=== PATIENT | male | born 1935 | race Caucasian/White ===

== ENCOUNTER 2016-04-30 13:24 | Emergency (ER) | payer MEDICARE ==
--- NOTE | 2016-04-30 16:03 | Emergency Department Record ---
History of Present Illness - General Chief Complaint: Fall Injury Stated Complaint: FELL 04/28/16 Time Seen by Provider: 04/30/16 15:07 Source: Patient Mode of Arrival: Ambulatory Limitations: No limitations - History of Present Illness Initial Comments: pt fell 2 days ago after tripping on something on the floor and has continued to have pain in his l thumb and shoulder that is keeping him awake at night. 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 Witnessed: No Place Fall Occurred: Home Loss of Consciousness: None Prolonged Down Time?: No Symptoms Prior to Fall: None Location - Extremities: Left: Shoulder, Hand Severity: Moderate Quality: Aching Associated Symptoms: Denies - Mariia Coma Scale Eye Response: (4) Open spontaneously Motor Response: (6) Obeys commands Verbal Response: (5) Oriented Mariia Total: 15 - Related Data Home Medications Medication Instructions Recorded Confirmed Last Taken Aspirin Chewable 81 mg PO DAILY 07/19/15 04/30/16 1 Day Ago Fluoxetine HCl [Prozac] 20 mg PO DAILY 07/19/15 04/30/16 1 Day Ago Hydrochlorothiazide [Hctz 25Mg] 25 mg PO DAILY 07/19/15 04/30/16 1 Day Ago Lisinopril [Zestril] 20 mg PO DAILY 07/19/15 04/30/16 1 Day Ago Metformin HCl 850 mg PO BID 07/19/15 04/30/16 1 Day Ago Freedom-3 Fatty Acids/Fish Oil [Fish 1 tab PO DAILY 07/19/15 04/30/16 1 Day Ago Oil 1,000 mg Softgel] Oxybutynin Chloride [Ditropan Xl] 10 mg PO DAILY 07/19/15 04/30/16 1 Day Ago Simvastatin [Simvastatin] 40 mg PO DAILY 07/19/15 04/30/16 1 Day Ago FA/Vit B Complex & C/Rice Bran 1 each PO DAILY 04/30/16 04/30/16 1 Day Ago [Vitamin B-Complex & C Caplet] Metoprolol Succinate [Toprol Xl] 50 mg PO QPM 04/30/16 04/30/16 1 Day Ago Tamsulosin HCl [Flomax] 0.4 mg PO DAILY 04/30/16 04/30/16 1 Day Ago Previous Rx's Medication Instructions Recorded Hydrocodone/Acetaminophen [Holt 0.5 - 1 tab PO TID PRN #7 tab 04/30/16 5mg/325mg] Allergies Allergy/AdvReac Type Severity Reaction Status Date / Time Penicillins Allergy Unknown ANAPHYLAXIS Verified 04/30/16 14:39 Sulfa (Sulfonamide Allergy Unknown ITCHING Verified 04/30/16 14:39 Antibiotics) sulfacetamide Allergy Unknown ITCHING Verified 04/30/16 14:39 codeine AdvReac HEADACHE Verified 04/30/16 14:39 Travel Screening - Travel/Exposure Within Last 30 Days Have you traveled within the last 30 days?: No - Travel/Exposure Within Last Year Have you traveled outside the [place] in the last year?: No - Additonal Travel Details Have you been exposed to anyone with a communicable illness?: No - Travel Symptoms Symptom Screening: None Review of Systems Reviewed: No additional complaints except as noted below Constitutional: Reports: As per HPI. Denies: Chills, Fever, Malaise, Night sweats, Weakness, Weight change Eyes: Reports: As per HPI. Denies: Eye discharge, Eye pain, Photophobia, Vision change ENT: Reports: As per HPI. Denies: Congestion, Dental pain, Ear pain, Epistaxis , Hearing loss, Throat pain Respiratory: Reports: As per HPI. Denies: Cough, Dyspnea, Hemoptysis, Stridor, Wheezes Cardiovascular: Reports: As per HPI. Denies: Arrhythmia, Chest pain, Dyspnea on exertion, Edema, Murmurs, Orthopnea, Palpitations, Paroxysmal nocturnal dyspnea, Rheumatic Fever, Syncope Endocrine: Reports: As per HPI. Denies: Fatigue, Heat or cold intolerance, Polydipsia, Polyuria Gastrointestinal: Reports: As per HPI. Denies: Abdominal pain, Constipation, Diarrhea, Hematemesis, Hematochezia, Melena, Nausea, Vomiting Genitourinary: Reports: As per HPI. Denies: Dysuria, Frequency, Hematuria, Incontinence, Retention, Testicular pain, Testicular mass, Urgency Musculoskeletal: Reports: As per HPI. Denies: Arthralgia, Back pain, Gout, Joint swelling, Myalgia, Neck pain Skin: Reports: As per HPI. Denies: Bruising, Change in color, Change in hair/ nails, Lesions, Pruritus, Rash Neurological: Reports: As per HPI. Denies: Abnormal gait, Confusion, Headache, Numbness, Paresthesias, Seizure, Tingling, Tremors, Vertigo, Weakness Psychiatric: Reports: As per HPI. Denies: Anxiety, Auditory hallucinations, Depression, Homicidal thoughts, Suicidal thoughts, Visual hallucinations Hematological/Lymphatic: Reports: As per HPI. Denies: Anemia, Blood Clots, Easy bleeding, Easy bruising, Swollen glands Past Medical History - SOCIAL HISTORY Smoking Status: Former smoker Alcohol Use: None Drug Use: None - RESPIRATORY Hx Respiratory Disorders: Yes Hx of CPAP: Yes - CARDIOVASCULAR Hx Cardio Disorders: Yes Hx Hypertension: Yes - NEURO Hx Neuro Disorders: Yes Hx Dementia: Yes - GI Hx GI Disorders: No - Hx Genitourinary Disorders: Yes Hx Prostate Problems: Yes - ENDOCRINE Hx Endocrine Disorders: Yes Hx Diabetes: Yes - MUSCULOSKELETAL Hx Musculoskeletal Disorders: No - PSYCH Hx Psych Problems: Yes Hx Depression: Yes - HEMATOLOGY/ONCOLOGY Hx Hematology/Oncology Disorders: No Family Medical History Any Significant Family History?: Yes Physical Exam - General General Appearance: Alert, Oriented x3, Cooperative, Mild distress - Head Head exam: Normal inspection - Eye Eye exam: Normal appearance, PERRL, EOMI Pupils: Normal accommodation - ENT ENT exam: Normal exam, Mucous membranes moist, Normal external ear exam, Normal orophraynx, TM's normal bilaterally Ear exam: Normal external inspection. negative: External canal tenderness Nasal Exam: Normal inspection. negative: Discharge, Sinus tenderness Mouth exam: Normal external inspection, Tongue normal Teeth exam: Normal inspection. negative: Dental caries Throat exam: Normal inspection. negative: Tonsillar erythema, Tonsillar exudate - Neck Neck exam: Normal inspection, Full ROM. negative: Tenderness - Respiratory Respiratory exam: Normal lung sounds bilaterally. negative: Respiratory distress - Cardiovascular Cardiovascular Exam: Regular rate, Normal rhythm, Normal heart sounds - GI/Abdominal GI/Abdominal exam: Soft, Normal bowel sounds. negative: Tenderness - Rectal Rectal exam: Deferred - exam: Deferred - Extremities Extremities exam: Joint swelling, Normal capillary refill, Tenderness. negative : Full ROM Image of Full Body: 1 - tender 2 - tender, swelling Image of Hand: 1 - tender, swelling - Back Back exam: Reports: Normal inspection, Full ROM. Denies: Muscle spasm, Rash noted, Tenderness - Neurological Neurological exam: Alert, CN II-XII intact, Normal gait, Oriented X3 - Psychiatric Psychiatric exam: Normal affect, Normal mood - Skin Skin exam: Dry, Intact, Normal color, Warm Course Vital Signs 04/30/16 14:28 Temperature 98.0 F Pulse Rate 82 Respiratory 16 Rate Blood Pressure 151/84 Pulse Ox 99 Disposition Disposition: Discharge Clinical Impression: Left thumb sprain Qualifiers: Encounter type: initial encounter Sprain of finger site: unspecified site Qualified Code(s): S63.602A - Unspecified sprain of left thumb, initial encounter Disposition: Home, Self-Care Condition: (1) Good Instructions: Fall Prevention for Older Adults (ED), Skier's Thumb (ED), Ligament Sprain, Youth Specialist (GEN) Additional Instructions: follow up with family doctor and with ortho doctor. return sooner if worse. motrin with food Prescriptions: Hydrocodone/Acetaminophen [Holt 5mg/325mg] 0.5 - 1 tab PO TID PRN #7 tab PRN Reason: Pain - General Forms: Patient Portal Access
--- NOTE | 2016-05-04 12:49 | RADIOLOGY REPORT ---
EXAM: LEFT HUMERUS, TWO VIEWS HISTORY: PAIN IN THE UPPER ARM SINCE FALL THREE DAYS AGO. TECHNIQUE: Two views of the left humerus are provided without comparison examinations. FINDINGS: There is no radiographic evidence of a fracture or dislocation of the left humerus. No significant soft tissue abnormalities are visualized. Acromioclavicular hypertrophy is noted. The visualized left hemithorax is unremarkable. IMPRESSION: NO RADIOGRAPHIC EVIDENCE OF AN ACUTE PROCESS INVOLVING THE LEFT HUMERUS. JOB NUMBER: [id number] MTDD
--- NOTE | 2016-05-04 12:55 | RADIOLOGY REPORT ---
EXAM: LEFT FIRST DIGIT, THREE VIEWS HISTORY: PAIN STATUS POST FALL. TECHNIQUE: Three views of the left first digit are provided without comparison examinations. FINDINGS: There is no radiographic evidence of a fracture or dislocation of the left first digit. Advanced joint space loss with marginal osteophyte formation and subchondral sclerosis is noted at the first carpal metacarpal, metacarpal phalangeal, and interphalangeal joints. No radiopaque foreign bodies are identified. No significant soft tissue swelling is noted. 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 JOB NUMBER: [id number] MTDD
== END 2016-04-30 16:48 | disposition home or self-care (01) ==
LOC: ER 13:24
DX: S63.602A Unspecified sprain of left thumb, initial encounter (principal); M25.512 Pain in left shoulder; W18.09XA Striking against other object with subsequent fall, initial encounter; Y92.009 Unspecified place in unspecified non-institutional (private) residence as the place of occurrence of the external cause
CPT/HCPCS: 99283

== ENCOUNTER 2017-04-25 19:45 | Emergency (ER) | payer MEDICARE ==
--- NOTE | 2017-04-25 19:56 | Emergency Department Record ---
History of Present Illness - General Chief complaint: Weakness Stated complaint: WEAKNESS Time Seen by Provider: 04/25/17 19:49 Source: Patient, EMS Mode of Arrival: Stretcher Limitations: No limitations - History of Present Illness Initial comments: 82 yo male present by EMS after an episode of weakness and collapsing into a chair. He denies LOC. 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 He states he started to feel very weak and lost control of his bladder and urinated in his pants. He went to the bathroom to clean up and then felt overwhelming weak and collapsed into his 's chair. He did not loose consciousness. He recalls the event. He was weak all over not on one side or the other. No changes in vision or speech. No headache or dizziness. No chest pain. No shortness of breath. No back or abdominal pain. No numbness or tingling. [facility] P[facility] is at [facility] in [place]. MD Complaint: Generalized weakness -: Hour(s) (1) Location: Generalized Severity: Moderate Consistency: Now resolved Improves with: None Worsens with: None Associated Symptoms: Other (urinary incontinence) - Mariia Coma Scale Eye Response: (4) Open spontaneously Motor Response: (6) Obeys commands Verbal Response: (5) Oriented Hendricks Total: 15 - Related Data Home Medications Medication Instructions Recorded Confirmed Last Taken Donepezil HCl 5 mg PO DAILY 04/25/17 04/25/17 04/25/17 Meloxicam [Mobic] 15 mg PO DAILY 04/25/17 04/25/17 Unknown Memantine HCl [Namenda] 10 mg PO BID 04/25/17 04/25/17 Unknown Allergies Allergy/AdvReac Type Severity Reaction Status Date / Time Penicillins Allergy Unknown ANAPHYLAXIS Verified 04/30/16 14:39 Sulfa (Sulfonamide Allergy Unknown ITCHING Verified 04/30/16 14:39 Antibiotics) sulfacetamide Allergy Unknown ITCHING Verified 04/30/16 14:39 codeine AdvReac HEADACHE Verified 04/30/16 14:39 Review of Systems Constitutional: Reports: Weakness. Denies: Chills, Fever, Malaise Eyes: Denies: Eye discharge, Eye pain, Photophobia, Vision change ENT: Denies: Congestion, Throat pain Respiratory: Denies: Cough, Dyspnea, Hemoptysis, Stridor, Wheezes Cardiovascular: Reports: Syncope (near syncope). Denies: Chest pain, Dyspnea on exertion, Edema, Palpitations Endocrine: Reports: Fatigue Gastrointestinal: Denies: Abdominal pain, Constipation, Diarrhea, Hematemesis, Hematochezia, Melena, Nausea, Vomiting Genitourinary: Reports: Incontinence. Denies: Dysuria, Frequency, Hematuria, Retention, Testicular pain, Urgency Musculoskeletal: Denies: Arthralgia, Back pain, Gout, Neck pain Skin: Denies: Bruising, Change in color, Rash Neurological: Reports: Weakness. Denies: Abnormal gait, Confusion, Headache, Numbness, Seizure, Tingling, Tremors, Vertigo Psychiatric: Denies: Anxiety Hematological/Lymphatic: Denies: Blood Clots, Easy bleeding, Easy bruising, Swollen glands Past Medical History - SOCIAL HISTORY Smoking Status: Former smoker Drug Use: None - RESPIRATORY Hx Respiratory Disorders: Yes Hx of CPAP: Yes - CARDIOVASCULAR Hx Cardio Disorders: Yes Hx Hypertension: Yes - NEURO Hx Neuro Disorders: Yes Hx Dementia: Yes - GI Hx GI Disorders: No - Hx Genitourinary Disorders: Yes Hx Prostate Problems: Yes - ENDOCRINE Hx Endocrine Disorders: Yes Hx Diabetes: Yes - MUSCULOSKELETAL Hx Musculoskeletal Disorders: No - PSYCH Hx Psych Problems: Yes Hx Depression: Yes - HEMATOLOGY/ONCOLOGY Hx Hematology/Oncology Disorders: No Physical Exam - General General Appearance: Alert, Oriented x3, Cooperative, No acute distress, Other ( Well appearing, conversational, moved himself over onto the ED bed without assist) Limitations: No limitations - Head Head exam: Atraumatic, Normal inspection - Eye Eye exam: Normal appearance, PERRL, EOMI. negative: Conjunctival injection, Periorbital swelling, Scleral icterus - ENT ENT exam: Normal exam, Mucous membranes moist Ear exam: Normal external inspection Nasal Exam: Normal inspection Mouth exam: Normal external inspection Teeth exam: Normal inspection Throat exam: Normal inspection - Neck Neck exam: Normal inspection, Full ROM. negative: Tenderness - Respiratory Respiratory exam: Normal lung sounds bilaterally. negative: Accessory muscle use, Decreased breath sounds, Respiratory distress, Rhonchi, Stridor, Wheezes - Cardiovascular Cardiovascular Exam: Regular rate, Normal rhythm, Normal heart sounds, Diastolic murmur, Systolic murmur Peripheral Pulses: 2+: Radial (R), Radial (L) - GI/Abdominal GI/Abdominal exam: Soft. negative: Distended, Guarding, Rebound, Rigid, Tenderness - Rectal Rectal exam: Deferred - exam: Deferred - Extremities Extremities exam: Normal inspection, Full ROM, Normal capillary refill. negative: Pedal edema, Tenderness - Back Back exam: Reports: Normal inspection, Full ROM. Denies: Muscle spasm, Rash noted, Tenderness - Neurological Neurological exam: Alert, Normal gait, Oriented X3. negative: CN II-XII intact - Psychiatric Psychiatric exam: Normal affect, Normal mood. negative: Agitated, Anxious - Skin Skin exam: Dry, Intact, Normal color, Warm Course - Reevaluation(s) Reevaluation #1: EKG NSR rate is 66, intervals prolonged TX 220, axis normal, ST NS inferior Q ( old), No acute ST changes. No changes 09/200304/25/17 19:58 04/25/17 21:11 No acute changes on the CBC, CMP, Troponin 04/25/17 21:29 HCT is negative for acute process, 2cm possible RF hemangioma CXR is negative for acute process. Chronic fibrosis 04/25/17 21:39 The is in the ED. She reports no prior history of cardiac murmur. Given his near syncope and murmur recommend further work up. 04/25/17 21:43 UA is consistent with UTI with TNTC WBC and +1 bacteria 04/25/17 21:55 Dr Adams accept the patient for transfer and further work up at [facility] Medical Decision Making - Lab Data Result diagrams: 04/25/17 20:06 04/25/17 20:06 Disposition Disposition: Transfer Clinical Impression: Pre-syncope, Heart murmur, UTI (urinary tract infection) Disposition: Acute Care Hospital Transfer Transfer To: [facility] Reason For Transfer: Near syncope , murmur Accepting Physician: Bryan Time Discussed w/Accepting Physician: 21:56 Condition: (1) Good Forms: Patient Portal Access Time of Disposition: 21:56 Quality - Quality Measures Quality Measures: N/A - Blood Pressure Screening Does Patient Have Any of the Following: Active Dx of HTN Blood Pressure Classification: Hypertensive Reading Systolic Measurement: 193 Diastolic Measurement: 110 Screening for High Blood Pressure: Patient Exclusion, Hx of HTN [G9744]
[2017-04-25 20:11] LABS: BASO % 0.5 % (0-6); EOS % 4.2 % (0-6); GRAN % 72.1 % (47-80); HEMOGLOBIN 12.2 gm/dl (14.0-18.0); LYMPH % 15.4 % (16-45); MEAN CELL VOLUME 94.1 fl (81-97); MEAN CORPUSCULAR HGB CONC 34.9 g/dl (32-36); MEAN PLATELET VOLUME 8.6 fl (7.4-10.4); MONO % 7.8 % (0-9); PLATELET COUNT 140 K/uL (130-400); RED BLOOD COUNT 3.72 M/uL (4.40-5.70); RED CELL DISTRIBUTION WIDTH 13.7 % (11.5-14.5); WHITE BLOOD COUNT W/O DIFF 6.2 K/uL (4.2-12.2)
[2017-04-25 20:13] LABS: MEAN CORPUSCULAR HEMOGLOBIN 32.7 pg (27-33)
[2017-04-25 20:23] LABS: PARTIAL THROMBOPLASTIN TIME 26.4 SECONDS (24.5-39.1); PROTHROMBIN TIME (PATIENT) 10.9 SECONDS (9.5-12.1)
[2017-04-25 20:32] LABS: ALB/GLOB RATIO 1.4 (1.1-1.8); ALBUMIN 4.4 g/dL (4.0-5.0); ALKALINE PHOSPHATASE 59 U/L (40-129); ALT/SGPT 16 U/L (<41); AST/SGOT 23 U/L (10.0-50.0); BLOOD UREA NITROGEN 20 mg/dL (8-23); CREATININE 1.1 mg/dL (0.7-1.2); EST GLOMERULAR FILTRATION RATE > 60 mL/min; GLUCOSE,RANDOM 185 mg/dL (74-109); TOTAL PROTEIN 7.5 g/dL (6.6-8.7)
[2017-04-25 21:26] LABS: URINE APPEARANCE CLEAR; URINE BILIRUBIN NEGATIVE (NEGATIVE); URINE BLOOD MODERATE (NEGATIVE); URINE COLOR YELLOW; URINE GLUCOSE (UA) NEGATIVE (NEGATIVE); URINE KETONE NEGATIVE (NEGATIVE); URINE LEUKOCYTE ESTERASE LARGE (NEGATIVE); URINE NITRITE NEGATIVE (NEGATIVE); URINE PROTEIN NEGATIVE (NEGATIVE); URINE UROBILINOGEN 0.2 E.U./dL (0.20 - 1.00)
[2017-04-25 21:33] LABS: URINE BACTERIA 1+; URINE EPITHELIAL CELLS 0 - 2 (FEW); URINE RBC 0 - 2 (NONE SEEN)
[2017-04-25] MEDS ORDERED: CEFTRIAXONE SODIUM 1 GM in 0.9 % SODIUM CHLORIDE 100ML 100 ML IVPB ONE (21:43)
--- NOTE | 2017-04-27 07:35 | CT SCAN REPORT ---
EXAM: EMERGENCY HEAD CT HISTORY: SYNCOPE, WEAK, NUMBNESS IN HANDS AND LEGS. TECHNIQUE: Axial CT scan of the head was performed without IV contrast. Comparison: None. FINDINGS: Moderate generalized atrophy is present. 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 No definite acute infarct or intracranial mass lesion is seen. No depressed calvarial fracture is evident, however, there is a somewhat permeative appearing lesion in the paramedian right frontal bone measuring about 2 cm in maximum diameter that appears to involve the medullary portion of the calvarium in this region as well as the inner table and to a lesser degree also the outer table. No actual expansion of the calvarium is seen and no definite involvement of the adjacent scalp or underlying brain identified. This may be a hemangioma although comparison with any prior CT's that include the skull would be useful. Follow- up total body bone scan may also be useful. Prominent degenerative change at the odontoid-anterior arch of C1 articulation. IMPRESSION: 1. GENERALIZED ATROPHY WITH CHRONIC APPEARING DEEP WHITE MATTER CHANGES. 2. NO ACUTE INTRACRANIAL HEMORRHAGE OR FOCAL MASS EFFECT EVIDENT. 3. APPROXIMATELY 2 CM LESION IN THE RIGHT FRONTAL BONE QUESTIONABLY A HEMANGIOMA DESCRIBED ABOVE. COMPARISON WITH ANY PRIOR CT SCANS THAT INCLUDE THE SKULL WOULD BE USEFUL IN THIS REGARD. JOB NUMBER: [id number] [facility]
--- NOTE | 2017-04-27 07:37 | RADIOLOGY REPORT ---
EXAM: CHEST, TWO VIEWS HISTORY: MURMUR. TECHNIQUE: PA and lateral views of the chest were obtained. Comparison: No prior chest x-ray. FINDINGS: The heart size is within normal limits. Mild diffuse interstitial prominence may be chronic for the patient. No acute alveolar infiltrate seen and no pleural effusion or pneumothorax evident. IMPRESSION: 1. SOME MILD DIFFUSE INTERSTITIAL PROMINENCE. NO ACUTE ALVEOLAR INFILTRATE SEEN. 2. THE HEART SIZE IS NORMAL. JOB NUMBER: [id number] MTDD
== END 2017-04-26 00:47 | disposition short-term general hospital (02) ==
LOC: ER 19:45
DX: R55 Syncope and collapse (principal); R01.1 Cardiac murmur, unspecified; R53.1 Weakness; N39.0 Urinary tract infection, site not specified; R31.29 Other microscopic hematuria; I10 Essential (primary) hypertension; Z87.891 Personal history of nicotine dependence; Z79.84 Long term (current) use of oral hypoglycemic drugs
CPT/HCPCS: 70450; 71046; 80053; 81001; 83735; 84484; 85025; 85610; 85730; 93005; 93010; 96365; 99285

== ENCOUNTER 2017-10-24 12:11 | Emergency (ER) | payer MEDICARE ==
--- NOTE | 2017-10-24 12:50 | Emergency Department Record ---
History of Present Illness - General Chief complaint: Male Urogenital Problem Stated complaint: CATHETER PROBLEM/PAIN Time Seen by Provider: 10/24/17 12:41 Source: Patient, Family Mode of Arrival: Ambulatory Limitations: No limitations - History of Present Illness Initial comments: 82 yo male presents with irritation of the penis glans for a couple weeks. He has a chronic indwelling noe. No blood in the urine or retention. He has been applying an ointment without resolution. No fevers or chills. No abdominal pain. His urologist is Dr Bernal. He reports his noe is due for changing as well. MD Complaint: Dysuria Onset/Timin -: Week(s) Location: Penis Severity scale (1-10): 10 Quality: Burning, Sharp Consistency: Constant Improves with: None Worsens with: Palpation Reports: Urinary retention - Related Data Previous Rx's Medication Instructions Recorded Nystatin 1 apply TP BID #15 gm 10/24/17 Allergies Allergy/AdvReac Type Severity Reaction Status Date / Time Penicillins Allergy Unknown ANAPHYLAXIS Verified 04/30/16 14:39 Sulfa (Sulfonamide Allergy Unknown ITCHING Verified 04/30/16 14:39 Antibiotics) sulfacetamide Allergy Unknown ITCHING Verified 04/30/16 14:39 codeine AdvReac HEADACHE Verified 04/30/16 14:39 Travel Screening - Travel/Exposure Within Last 30 Days Have you traveled within the last 30 days?: No Review of Systems Constitutional: Denies: Chills, Fever, Weakness Eyes: Denies: Eye discharge ENT: Denies: Congestion, Throat pain Respiratory: Denies: Cough Cardiovascular: Denies: Chest pain, Syncope Endocrine: Denies: Fatigue Gastrointestinal: Denies: Abdominal pain, Diarrhea, Nausea, Vomiting Genitourinary: Reports: Dysuria. Denies: Frequency Musculoskeletal: Denies: Arthralgia, Back pain, Myalgia Skin: Denies: Bruising, Change in color, Rash Neurological: Denies: Headache Psychiatric: Denies: Anxiety Hematological/Lymphatic: Denies: Blood Clots, Easy bleeding, Easy bruising Past Medical History - SOCIAL HISTORY Smoking Status: Former smoker - RESPIRATORY Hx Respiratory Disorders: Yes Hx of CPAP: Yes - CARDIOVASCULAR Hx Cardio Disorders: Yes Hx Hypertension: Yes - NEURO Hx Neuro Disorders: Yes Hx Dementia: Yes - GI Hx GI Disorders: No - Hx Genitourinary Disorders: Yes Hx Bladder Problem: Yes (urinary retention) Hx Prostate Problems: Yes - ENDOCRINE Hx Endocrine Disorders: Yes Hx Diabetes: Yes - MUSCULOSKELETAL Hx Musculoskeletal Disorders: No - PSYCH Hx Psych Problems: Yes Hx Depression: Yes - HEMATOLOGY/ONCOLOGY Hx Hematology/Oncology Disorders: No Family Medical History Any Significant Family History?: No Physical Exam - General General Appearance: Alert, Oriented x3, Cooperative, No acute distress Limitations: No limitations - Head Head exam: Atraumatic, Normal inspection - Eye Eye exam: Normal appearance - ENT ENT exam: Normal exam Ear exam: Normal external inspection Nasal Exam: Normal inspection Mouth exam: Normal external inspection - Neck Neck exam: Normal inspection - Respiratory Respiratory exam: Normal lung sounds bilaterally - GI/Abdominal GI/Abdominal exam: Soft. negative: Tenderness - Rectal Rectal exam: Deferred - exam: Circumcision (mild erythema and inflammation of the glans, meatus appears normal). negative: Normal inspection, Scrotal swelling, Testicular tenderness, Urethral discharge - Extremities Extremities exam: Normal inspection - Neurological Neurological exam: Alert, Oriented X3 - Psychiatric Psychiatric exam: Normal affect, Normal mood - Skin Skin exam: Dry, Intact, Normal color, Warm Course Vital Signs 10/24/17 12:37 Temperature 98.2 F Pulse Rate 75 Respiratory 18 Rate Blood Pressure 122/71 Pulse Ox 98 Disposition Disposition: Discharge Clinical Impression: Carteranitis Disposition: Home, Self-Care Condition: (1) Good Instructions: [place] (ED) Additional Instructions: Follow up recheck with Dr Bernal Return if fever, noe troubles, pain, swelling or fever Apply the cream twice daily after cleaning and drying the penis Prescriptions: Nystatin 1 apply TP BID #15 gm Referrals: VIKI BERNAL M.D. [MEDICAL DOCTOR] - [facility] [Provider Group] Forms: Patient Portal Access Time of Disposition: 12:50 Quality - Quality Measures Quality Measures: N/A - Blood Pressure Screening Does Patient Have Any of the Following: Active Dx of HTN Blood Pressure Classification: Pre-Hypertensive BP Reading Systolic Measurement: 122 Diastolic Measurement: 71 Screening for High Blood Pressure: Patient Exclusion, Hx of HTN [G9744]
== END 2017-10-24 13:50 | disposition home or self-care (01) ==
LOC: ER 12:11
DX: N48.1 Balanitis (principal); R30.0 Dysuria; I10 Essential (primary) hypertension; Z87.891 Personal history of nicotine dependence
CPT/HCPCS: 99282